=== PATIENT | female | born 1940 | race Caucasian/White ===

== ENCOUNTER 2017-12-12 17:16 | Inpatient (IN) ==
[2017-12-12] MEDS ORDERED: LACTATED RINGERS 1,000 ML IV ONE (20:45)
[2017-12-12] MEDS ORDERED: ONDANSETRON 4 MG/2 ML VIAL IV STA (20:45)
[2017-12-12 21:24] LABS: Basophils % 0.3 % (0.0-0.8); Eosinophils # 0.1 10*3/uL (0.0-0.87); Eosinophils % 0.5 % (0.00-10.9); Hemoglobin 13.7 GM/DL (12.0-16.0); Immature Granulocytes % 0.3 %; Immature Granulocytes Absolute 0.05 #; Lymphocytes # 1.3 10*3/uL (1.4-4.0); Lymphocytes % 8.7 % (21.3-54.2); Mean Corpuscular HGB Conc 32.6 GM/DL (32-36); Mean Corpuscular Hemoglobin 29 PG (27-34); Mean Corpuscular Volume 90.1 FL (87-102); Mean Platelet Volume 12.3 FL (9.6-12.0); Monocytes % 6.9 % (1.7-12.7); Neutrophils # 12.1 10*3/uL (1.4-7.4); Neutrophils % 83.3 % (38.7-73.9); Platelet Count 169 T/CUMM (130-400); Red Blood Count 4.66 MC/CUMM (3.8-5.5); Red Cell Distribution Width 14.2 % (9.3-17.3); White Blood Count 14.6 T/CUMM (4-12)
[2017-12-12 21:44] LABS: Albumin 3.7 G/DL (3.4-5.0); Bilirubin,Total 0.6 MG/DL (0.2-1.0); Calcium 8.3 MG/DL (8.5-10.1); Osmolality,Calculated 279.5 MOS/KG (273-304); Potassium 4.1 MMOL/L (3.5-5.1); Total Protein 7.4 G/DL (6.4-8.3)
[2017-12-13 01:01] LABS: Apearance,Urine CLEAR (Clear); Bilirubin,Urine Negative (Negative); Blood, Urine Negative (Negative); Glucose,Urine (UA) Negative (Negative); Ketones,Urine Negative (Negative); Nitrite,Urine Negative (Negative); Protein,Urine Negative; RBC,Urine <1 /HPF (0-4); Urine Color Colorless (Yellow); Urine Specific Gravity 1.014 (1.001-1.035); Urine Urobilinogen < 2.0 EU/DL (0.2-1.0)
[2017-12-13] MEDS: LACTATED RINGERS 1,000 ML IV SCH ×2 (03:08→11:00)
[2017-12-13] MEDS ORDERED: ONDANSETRON 4 MG/2 ML VIAL IV PRN (03:08)
[2017-12-13] MEDS ORDERED: ACETAMINOPHEN 325 MG TABLET PO PRN (09:51)
[2017-12-13] MEDS: ENOXAPARIN 40 MG/0.4 ML SYRINGE SUBCUT SCH (11:00)
[2017-12-13] MEDS ORDERED: LORazepam 2 MG/1 ML VIAL IV ONE (20:21)
[2017-12-14] MEDS: LACTATED RINGERS 1,000 ML IV SCH ×3 (03:17→15:19)
[2017-12-14 07:07] LABS: Basophils % 0.3 % (0.0-0.8); Eosinophils # 0.1 10*3/uL (0.0-0.87); Eosinophils % 0.8 % (0.00-10.9); Hemoglobin 13.3 GM/DL (12.0-16.0); Immature Granulocytes % 0.5 %; Immature Granulocytes Absolute 0.06 #; Lymphocytes % 9.2 % (21.3-54.2); Mean Corpuscular HGB Conc 32.4 GM/DL (32-36); Mean Corpuscular Hemoglobin 29 PG (27-34); Mean Corpuscular Volume 89.7 FL (87-102); Mean Platelet Volume 12.4 FL (9.6-12.0); Monocytes # 0.6 10*3/uL (0.11-0.8); Monocytes % 5.3 % (1.7-12.7); Neutrophils # 9.3 10*3/uL (1.4-7.4); Neutrophils % 83.9 % (38.7-73.9); Platelet Count 175 T/CUMM (130-400); Red Blood Count 4.57 MC/CUMM (3.8-5.5); Red Cell Distribution Width 13.6 % (9.3-17.3)
[2017-12-14 07:29] LABS: Calcium 8.8 MG/DL (8.5-10.1)
[2017-12-14 07:30] LABS: Osmolality,Calculated 277.4 MOS/KG (273-304); Potassium 3.8 MMOL/L (3.5-5.1)
[2017-12-14] MEDS ORDERED: traMADol 50 MG TABLET PO PRN (08:47)
[2017-12-14] MEDS ORDERED: CETIRIZINE 10 MG TABLET PO PRN (08:47)
[2017-12-14] MEDS ORDERED: GABAPENTIN 300 MG CAPSULE PO SCH (09:00)
[2017-12-14] MEDS ORDERED: NON-FORMULARY MEDICATION (Mirabegron [Myrbetriq] 25 MG) PO SCH (09:00)
[2017-12-14] MEDS ORDERED: SERTRALINE 25 MG TABLET PO SCH (09:00)
[2017-12-14] MEDS ORDERED: hydroCHLOROthiazide 12.5 MG CAPSULE PO SCH (09:00)
[2017-12-14] MEDS ORDERED: PANTOPRAZOLE 40 MG TABLET PO SCH (09:00)
[2017-12-14] MEDS ORDERED: MAGNESIUM OXIDE 400 MG TABLET PO SCH (09:00)
[2017-12-14] MEDS ORDERED: amLODIPine 5 MG TABLET PO SCH (09:00)
[2017-12-14] MEDS: ENOXAPARIN 40 MG/0.4 ML SYRINGE SUBCUT SCH (09:27)
[2017-12-14] MEDS ORDERED: CETIRIZINE 10 MG TABLET PO SCH (11:00)
[2017-12-14 16:23] VITALS: BP 144/67
[2017-12-14] MEDS ORDERED: POTASSIUM CHLORIDE 20 MEQ TABLET PO SCH (17:00)
[2017-12-14] MEDS ORDERED: CARVEDILOL 12.5 MG TABLET PO SCH (17:00)
[2017-12-14] MEDS ORDERED: ROSUVASTATIN 10 MG TABLET PO SCH (21:00)
== END 2017-12-14 18:50 | disposition home or self-care (01) | DRG 390 ==
LOC: N.ED 17:16 → N.EDINP 12-13 01:15 → N.3E 12-13 01:41
PROVIDERS: ADMIT Surgery; ATTEND Surgery